=== PATIENT | male | born 1930 | race Caucasian/White ===

== ENCOUNTER 2016-07-07 10:07 | Emergency (ER) | payer MEDICARE, MEDICAID ==
[~2016-07-07] VITALS: Ht 188 cm; Wt 88.6 kg
[~2016-07-07 10:07] MED LIST: ASPI-664 PO; ATOR10TA65 PO; CARV12.579 PO; CHOL100062 PO; LACT1CAP57 PO; LEVO250T35 NGT; OMEG1CAP9 PO; PANT40TA4 PO; PETR453. TOP; UDTYL PO
[2016-07-07 10:13] VITALS: Ht 188 cm; Wt 88.6 kg
[2016-07-07] MEDS ORDERED: PROT946L PO (10:36)
[2016-07-07] MEDS ORDERED: PANT40TA3 PO (10:37)
[2016-07-07] MEDS ORDERED: NEPH PO (10:38)
[2016-07-07 12:40] VITALS: BP 106/61; PULSE 76; RESP 16; TEMP 98
--- NOTE | 2016-07-07 23:30 | ERD ---
DATE OF SERVICE: 07/07/2016 HISTORY OF PRESENT ILLNESS: This 85-year-old male is being sent from his long term facility f or malfunctioning suprapubic urinary catheter. There are no fevers or chills reported. Patient den ies any pain. He states that it was not draining earlier this morning, but currently has no pain or discomfort whatsoever. He feels otherwise well. Does not have any pain around the catheter site. REVIEW OF SYSTEMS: A 10-point review of systems is negative except as in the HPI. PAST MEDICAL HISTORY: Benign prostatic hyperplasia, hypercholesterolemia, history of urinary tract infections. PAST SURGICAL HISTORY: Suprapubic catheter insertion and gallbladder stent placement. SOCIAL HISTORY: Denies tobacco, alcohol, or other drugs. FAMILY HISTORY: Noncontributory. PHYSICAL EXAMINATION VITAL SIGNS: Temperature 97.9, pulse 82, blood pressure 129/69, respirations 18, oxygen saturation 99% on room air. ABDOMEN: Suprapubic catheter in place in the right lower abdomen. Very slight surrounding erythema without calor. Dry, no discharge, site clean and intact. No suprapubic tenderness or any abdomina l tenderness, nondistended, normal bowel sounds. GENERAL: No acute distress. NEUROLOGIC: Alert and oriented x3, no focal deficits. EMERGENCY DEPARTMENT COURSE AND MEDICAL DECISION MAKING: Apparently unclogged suprapubic catheter w ith previous malfunction. According to the charge nurse, he was taking report from the [facility] nurse who had not even tried flushing the catheter with saline. When he suggested that , she said that she got return from the catheter that she could not get return for previously. Kate ent was sent to the emergency room anyway for evaluation. The suprapubic catheter is functioning co mpletely normally and his Peace contains 400 mL of clear yellow urine. The catheter flushes easily with no problems and does not appear to be malfunctioning in any way. The patient has no signs of i nfection and no other complaints, although he is conversive, alert. He will be returned to his faci lity. I did speak with Dr. Winter, who sent the patient, who agreed that he could be sent back if th e catheter was now functioning normally. Discharged with instructions to follow up with his urologi st, Dr. Thapa, as well as Dr. Winter within the next couple of days. DIAGNOSIS: Suprapubic urinary catheter malfunction. DISPOSITION: Home in stable condition. Dictated By: SATISH COOPER Conf#: [id number] DID#: [id number]
[2016-07-08] MEDS ORDERED: CIPR500T4 PO (17:02)
== END 2016-07-07 12:46 | disposition home or self-care (01) ==
LOC: E/R 10:07
DX: T83.198A Other mechanical complication of other urinary devices and implants, initial encounter (principal); E11.9 Type 2 diabetes mellitus without complications; Y73.3 Surgical instruments, materials and gastroenterology and urology devices (including sutures) associated with adverse incidents
CPT/HCPCS: 99282

== ENCOUNTER 2016-07-08 13:41 | Emergency (ER) | payer MEDICARE, MEDICAID ==
[~2016-07-08] VITALS: Ht 182.9 cm; Wt 89.1 kg
[~2016-07-08 13:41] MED LIST changes: -LEVO250T35 NGT; +NEPH PO; +PANT40TA3 PO; -PANT40TA4 PO; -PETR453. TOP; +PROT946L PO
[2016-07-08 13:45] VITALS: Ht 182.9 cm; Wt 89.1 kg
[2016-07-08] MEDS ORDERED: CIPR500T4 PO (17:02)
[2016-07-08 18:11] VITALS: BP 134/79; PULSE 74; RESP 18; TEMP 98.6
--- NOTE | 2016-07-08 18:50 | ERD ---
ER Documentation Chief Complaint Date/Time DATE: 07/08/16 TIME: 18:46 Chief Complaint BROUGHT IN VIA PRIVATE AMBULANCE FOR SUPRAPUBIC CATHETER REPLACEMENT HPI Patient is an 86-year-old male with diabetes who presents after his suprapubic catheter was pulled out. This happened at 9 AM. He was brought in by ambulance. He was seen yesterday for a blocked catheter as well. Upon review of old medical records he does have multiple visits for various complaints. His urologist is Dr. Landers and his primary doctor is Dr. Winter. ROS All systems reviewed and are negative except as per history of present illness. Medications Home Meds Active Scripts Ciprofloxacin Hcl* (Ciprofloxacin Hcl*) 500 Mg Tablet, 500 MG PO BID for 7 Days , TAB Prov:ANTON CHEUNG MD 07/08/16 Lactobacillus Rhamnosus* (Culturelle*) 1 Each Cap.sprink, 1 CAP PO BID for 30 Days, CAP Prov:GONZALEZCHILANGOA V. MONUMENT MASON 06/01/16 Carvedilol* (Carvedilol*) 12.5 Mg Tablet, 12.5 MG PO BID for 30 Days, TAB Prov:GONZALEZCHILANGOA V. MONUMENT MASON 06/01/16 Atorvastatin (Atorvastatin) 10 Mg Tablet, 10 MG PO HS for 30 Days, TAB Prov:GONZALEZALLAN V. MONUMENT MASON 06/01/16 Acetaminophen* (Tylenol*) 160 Mg/5 Ml Soln, 650 MG PO Q6H Y for PAIN LEVEL 1-3 OR FEVER for 30 Days Prov:ALLAN GONZALEZ V. MONUMENT MASON 06/01/16 Reported Medications Multivit/Ca Carb/B Cmplx/Fa* (Mee-Vinod*) 1 Tab Tab, 1 TAB PO DAILY, TAB 07/07/16 Pantoprazole* (Protonix*) 40 Mg Tablet.dr, 40 MG PO BID, TAB 07/07/16 Protein Supplement (Promod) 946 Ml Liquid, 30 ML PO TID 07/07/16 Aspirin (Low Dose Aspirin) 81 Mg Tablet.dr, 81 MG PO DAILY, #30 TAB 05/14/16 Cholecalciferol* (Vitamin D3*) 1,000 Unit Tablet, 2000 UNIT PO DAILY, TAB 05/14/16 Stetson-3 Fatty Acids/Fish Oil (Fish Oil 1,000 mg Softgel) 1 Each Capsule, 2 EACH PO DAILY, CAP 05/14/16 Discontinued Scripts Petrolatum,White (White Petrolatum) 453.6 Gm Oint...g., 1 APPLIC TOP DAILY Y for DRY MOUTH for 30 Days Prov:CHILANGO GONZALEZA Rylan. MONUMENT MASON 06/01/16 Pantoprazole* (Pantoprazole*) 40 Mg Tablet.dr, 40 MG PO BID@06,18 for 30 Days Prov:GONZALEZ,ALLAN V. MONUMENT MASON 06/01/16 Levofloxacin* (Levaquin*) 250 Mg Tablet, 250 MG NGT Q48H for 26 Days, TAB STOP ON 07/06/2015 Prov:GONZALEZ,ALLAN V. MONUMENT MASON 06/01/16 Allergies Allergies: Coded Allergies: No Known Allergy (Verified , 07/07/16) PMhx/Soc Positive for diabetes History of Surgery: No Anesthesia Reaction: No Hx Neurological Disorder: No Hx Respiratory Disorders: No Hx Cardiac Disorders: No Hx Psychiatric Problems: No Hx Miscellaneous Medical Probl: No Hx Alcohol Use: No Hx Substance Use: No Hx Tobacco Use: No Smoking Status: Never smoker FmHx Family History: No diabetes Physical Exam Vitals Vital Signs Date Time Temp Pulse Resp B/P Pulse Ox O2 Delivery O2 Flow Rate FiO2 07/08/16 18:11 98.6 74 18 134/79 100 Room Air 07/08/16 13:45 98.1 89 18 109/66 98 Physical Exam Const: No acute distress Head: Atraumatic Eyes: Normal Conjunctiva ENT: Normal External Ears, Nose and Mouth. Neck: Full range of motion..~ No meningismus. Resp: Clear to auscultation bilaterally Cardio: Regular rate and rhythm, no murmurs Abd: There is an area where the suprapubic catheter was then has already closed off, no infection Skin: No petechiae or rashes Back: No midline or flank tenderness Ext: No cyanosis, or edema Neur: Awake and alert, mild dementia Psych: Normal Mood and Affect Procedures/MDM Bladder Scan performed by me. Indication: Urinary retention Findings: Approximately 600 mL of bladder fluid Patient is a 86-year-old male who presents with urinary retention and a suprapubic catheter which is pulled out. I initially attempted to replace the suprapubic catheter however he had a very thin catheter initially and this tract is already closed off. I did call Dr. Landers who unfortunately was unable to come to the bedside to replace the catheter. I asked him if it would be okay to call the urologist on-call which she agreed was okay. I then spoke with Dr. Morataya who is the urologist service station helper who graciously came to the bedside to assist. He did not feel the patient required a suprapubic catheter replacement as he was able to place a Peace catheter. The patient did have a phimosis which is why it seems the Peace catheter was not placed initially. At this point I believe outpatient management is appropriate and the patient will be discharged back to his care facility. I did give Cipro twice daily for 7 days to prevent infection. The patient should follow-up with his primary doctor within 24-48 hours for reevaluation. Departure Diagnosis: Primary Impression: Urinary retention Additional Impressions: Genitourinary symptoms Complication of catheter Encounter type: initial encounter Qualified Code: T85.9XXA - Complication of catheter, initial encounter Condition: Fair Patient Instructions: Emptying and Cleaning Your Urinary Catheter Bag Referrals: PALAK LANDERS MD Additional Instructions: SPECIALIST: YOU HAVE A MEDICAL CONDITION WHICH REQUIRES YOU TO SEE A SPECIALIST WITHIN THE NEXT 1-2 DAYS. PLEASE FOLLOW UP WITH YOUR PRIMARY PHYSICIAN FOR REFFERAL.IF YOU DO NOT HAVE A PRIMARY CARE PHYSICIAN AND/OR YOU CAN NOT AFFORD TO SEE A PHYSICIAN THE FOLLOWING RESOURCES HAVE BEEN SUPPLIED TO YOU. IT IS YOUR RESPONSIBILITY TO BE SEEN BY THE SPECIALIST ANTON CHEUNG MD Jul 08, 2016 18:50
== END 2016-07-08 18:13 | disposition home or self-care (01) ==
LOC: E/R 13:41
DX: R33.9 Retention of urine, unspecified (principal); E11.9 Type 2 diabetes mellitus without complications; R39.9 Unspecified symptoms and signs involving the genitourinary system; Y73.2 Prosthetic and other implants, materials and accessory gastroenterology and urology devices associated with adverse incidents; Z79.82 Long term (current) use of aspirin

== ENCOUNTER → 2016-11-11 | Outpatient (CLI) | payer MEDICARE ==
[~2016-11-11] MED LIST changes: +CIPR500T4 PO; +LIDOCAINE 1% (MDV) 20 ML INJ ONE
--- NOTE | 2016-11-11 16:26 | RADRPT ---
PROCEDURE: Right internal jugular vein tunneled hemodialysis catheter removal. CLINICAL INDICATION: Right internal jugular vein tunneled dialysis catheter no longer required. TECHNIQUE: INTRAPROCEDURE MEDICATIONS: 1% lidocaine subcutaneous. The procedure, risks, benefits, complications and alternatives were explained to the patient. Consen t was obtained. A procedural pause was performed prior to the procedure. The patient's name, date of , and procedure to be performed were verified. The right anterior chest wall was prepped and draped. One percent lidocaine was used as local anesth esia at the site of the dialysis catheter. Fluoroscopic guidance was used. A 1 cm incision was made utilizing a 11 blade scalpel. Utilizing blunt dissection the tunneled catheter was mobilized. The catheter was then removed. Pressure was applied to the region of the internal jugular vein and the c hest wall at the site of the catheter until adequate hemostasis was obtained. A dressing was applie d. The patient tolerated procedure well. 0.1 minutes of fluoroscopy time was used. COMPARISON: None. FINDINGS: Successful removal of tunneled dialysis catheter. Postoperative image demonstrates successful remova l of the dialysis catheter. IMPRESSION: 1. Successful removal of right internal jugular vein tunneled dialysis catheter. RPTAT: QQ .Claus Byrnes MD, MD Date Time Electronically viewed and signed by .Claus Byrnes MD, on 11/11/2016 16:26 .R/
== END | disposition home or self-care (01) ==
LOC: RAD 12:26
PROVIDERS: ATTEND Internal Medicine Nephrology
DX: Z49.01 Encounter for fitting and adjustment of extracorporeal dialysis catheter (principal); I12.0 Hypertensive chronic kidney disease with stage 5 chronic kidney disease or end stage renal disease; N18.5 Chronic kidney disease, stage 5
CPT/HCPCS: 36589